=== PATIENT | male | born 1990 | race African-American/Black ===

== ENCOUNTER 2023-01-15 05:48 | Emergency (ER) | payer BC ==
[~2023-01-15] VITALS: Ht 193 cm; Wt 99.8 kg
[2023-01-15] MEDS ORDERED: DEXAMETHASONE SOD PHOS 10 MG/1 ML VIAL IM ONE (06:15)
[2023-01-15] MEDS ORDERED: DIPHENHYDRAMINE HCL 25 MG CAP PO ONE (06:15)
[2023-01-15] MEDS ORDERED: ZYRTEC10 MG PO (06:19)
[2023-01-15] MEDS ORDERED: DEXAMETHASONE SOD PHOS 10 MG/1 ML VIAL ONE (06:26)
[2023-01-15] MEDS ORDERED: DIPHENHYDRAMINE HCL 25 MG CAP ONE (06:27)
== END 2023-01-15 06:30 | disposition home or self-care (01) ==
LOC: ER 05:50
DX: L50.9 Urticaria, unspecified (principal)
CPT/HCPCS: 99283; J1100